=== PATIENT | female | born 1945 | race Caucasian/White ===

== ENCOUNTER 2024-07-07 21:06 | Emergency (ER) | payer OTHER ==
[2024-07-07 21:27] VITALS: TEMP 98.9; BMI 24.9
[2024-07-07] MEDS: HYDROCHLOROTHIAZIDE 12.5 MG CAPSULE (FP) PO ONE (22:09)
[2024-07-07] MEDS: OXYMETAZOLINE 0.05% NASAL SOLUTION 15 ML BOTTLE NS PRN (22:09)
[2024-07-07] MEDS ORDERED: LIDOCAINE 1%/EPI 1:100000 (20 ML MULTI DOSE VIAL) ONE (22:28)
[2024-07-07] MEDS ORDERED: TRANEXAMIC ACID 1000 MG/10 ML VIAL ONE (22:35)
[2024-07-07] MEDS: TRANEXAMIC ACID 1000 MG/10 ML VIAL IVPUSH ONE (22:59)
[2024-07-07 23:19] VITALS: BP 178/97; RESP 20
[2024-07-07] MEDS: LIDOCAINE 1%/EPI 1:100000 (50 ML MULTI DOSE VIAL) NR ONE (23:25)
[2024-07-07 23:43] LABS: ABSOLUTE IMMATURE GRANULOCYTES 0.02 x10^3/uL (0.0-0.031); BASOPHILS # 0.07 x10^3/uL (0.01-0.08); EOSINOPHIL % 2.5 % (0.7-5.8); EOSINOPHILS # 0.24 x10^3/uL (0.04-0.36); HEMATOCRIT 34.7 % (34.1-44.9); HEMOGLOBIN 11.3 g/dL (11.2-15.7); MCHC 32.6 g/dl (32.2-35.5); MEAN CELL VOLUME 91.3 fl (79.4-94.8); MEAN PLT VOLUME 10.2 fl (9.4-12.3); MONOCYTE # 0.63 x10^3/uL (0.24-0.86); MONOCYTE % 6.6 % (4.7-12.5); PLATELET COUNT 220 x10^3/uL (182-369); RDW 14.1 % (12.4-16.6)
[2024-07-07 23:53] LABS: INR 0.96 (0.83-1.09); PROTHROMBIN TIME (PATIENT) 10.6 SEC (9.7-13.0)
[2024-07-07 23:59] VITALS: PULSE 99
[2024-07-08 00:05] LABS: POTASSIUM 4.1 mmol/L (3.5-5.1)
[2024-07-08 00:07] LABS: CALCIUM 8.9 mg/dL (8.5-10.1)
[2024-07-08 00:08] LABS: ALBUMIN 3.4 g/dl (3.4-5.0); BLOOD UREA NITROGEN 24.2 mg/dL (7-18)
[2024-07-08 00:11] LABS: CREATININE 1.2 mg/dL (0.55-1.3)
[2024-07-08 00:12] LABS: BILIRUBIN,TOTAL 0.2 mg/dL (0.2-1); TOT PROT 6.8 g/dl (6.4-8.2)
== END 2024-07-08 00:06 | disposition short-term general hospital (02) ==
LOC: JER 21:06
PROC: 093K7ZZ Control Bleeding in Nasal Mucosa and Soft Tissue, Via Natural or Artificial Opening (ICD-10-PCS; principal; 2024-07-07)
PROC: 3E033GC Introduction of Other Therapeutic Substance into Peripheral Vein, Percutaneous Approach (ICD-10-PCS; 2024-07-07)
DX: R04.0 Epistaxis (principal); R11.0 Nausea
CPT/HCPCS: 30905; 36415; 80053; 85025; 85610; 86850; 86900; 86901; 96374; 99285-25